=== PATIENT | female | born 1940 | race Caucasian/White ===

== ENCOUNTER 2017-09-01 11:23 | Emergency (ER) | payer OTHER ==
[~2017-09-01] VITALS: Wt 48.1 kg
[2017-09-01] MEDS ORDERED: ONDANSETRON 4 MG INJ IV STA (13:29)
[2017-09-01] MEDS ORDERED: morphine 2 MG INJ IV STA (13:29)
[2017-09-01] MEDS ORDERED: KETOROLAC 30 MG INJ IV STA (13:29)
[2017-09-01] MEDS ORDERED: AMPICILLIN/SULB 1.5GM/NS (PMX) 50 ML IVPB ONE (13:30)
--- NOTE | 2017-09-01 13:55 | ERD ---
ER Documentation Chief Complaint Chief Complaint RIGHT HAND SWELLING X 4 DAYS HPI This is a 77-year-old female with a known history of diabetes that presents to the emergency department complaining of swelling and pain to her right hand that has progressively worsened over the past 4 days. The patient denies any recent or remote trauma to the right hand. She did notice a small pustule that began on the palmar aspect of the right hand 4 days ago but denies any pruritus. She has had no fevers no shaking or chills. She denies any shortness of breath at rest or exertion. She is right-handed dominant. She denies any numbness or tingling of her right hand. She did not take any antipyretics or analgesic medication prior to arrival. ROS All systems reviewed and are negative except as per history of present illness. Medications Home Meds Active Scripts Sulfamethoxazole/Trimethoprim* (Bactrim Ds* Tablet) 1 Each Tablet, 1 TAB PO BID , #10 TAB Prov:DURGA WESTFALL 09/01/17 Cephalexin* (Keflex*) 500 Mg Capsule, 500 MG PO QID for 10 Days, CAP Prov:DURGA WESTFALL 09/01/17 Allergies Allergies: Coded Allergies: No Known Allergy (Unverified , 09/01/17) Physical Exam Vitals Vital Signs Date Time Temp Pulse Resp B/P Pulse Ox O2 Delivery O2 Flow Rate FiO2 09/01/17 15:31 98.3 81 18 154/72 99 Room Air 09/01/17 11:27 98.4 88 18 158/62 99 Physical Exam Constitutional:Well-developed. Well-nourished. HEENT:Normocephalic. Atraumatic.Pupils were equal round reactive to light. Moist mucous membranes.No tonsillar exudates. Neck: No nuchal rigidity. No lymphadenopathy. No posterior cervical spine tenderness or step-offs. Respiratory: Not using accessory muscles of respiration.Lungs were clear to auscultation bilaterally. No rhonchi. No rales. No wheezing. Cardiovascular: Regular rate regular rhythm.No murmurs. No rubs were appreciated.S1, S2 normal. Distal pulses are palpable 2+ bilaterally. GI: Abdomen was soft. Nontender. Non Distended. No pulsatile abdominal masses or bruits. No rebound. No guarding. Bowel sounds were present and normal. Muscle skeletal: Full range of motion of both the upper and lower extremities bilaterally.Normal muscle tone.No assymetrical calf tenderness or swelling. Skin: No petechia, no purpura. No maculopapular rash. Erythremia warmth and tenderness over the palmar surface extending over the second metacarpal. Pustule present over the distal palmar second right metacarpal with no fusiform swelling of the digits. Fingers of the right hand were not held in slight flexion and no tenderness with passive extension of the digits of the right hand. No tenderness over the flexor tendon sheath on the right. No fluctuance or induration over the right hand. NEURO: Patient was alert, awake, orientated x3.No facial droop. Gait observed and normal with no ataxia.Speech had regular rate and rhythm. No focal neurological deficits. Result Diagram: 09/01/17 1350 09/01/17 1350 Results 24 hrs Laboratory Tests Test 09/01/17 13:50 White Blood Count 8.110^3/ul Red Blood Count 4.5710^6/ul Hemoglobin 13.8g/dl Hematocrit 39.4% Mean Corpuscular Volume 86.2fl Mean Corpuscular Hemoglobin 30.2pg Mean Corpuscular Hemoglobin Concent 35.0g/dl Red Cell Distribution Width 12.1% Platelet Count 08185^3/UL Mean Platelet Volume 10.5fl Neutrophils % 69.5% Lymphocytes % 23.4% Monocytes % 5.7% Eosinophils % 1.0% Basophils % 0.2% Nucleated Red Blood Cells % 0.0/100WBC Neutrophils # 5.710^3/ul Lymphocytes # 1.910^3/ul Monocytes # 0.510^3/ul Eosinophils # 0.110^3/ul Basophils # 0.010^3/ul Nucleated Red Blood Cells # 0.010^3/ul Prothrombin Time 11.7Sec Prothrombin Time Ratio 0.9 INR International Normalized Ratio 0.85 Activated Partial Thromboplast Time 33.1Sec Sodium Level 135mmol/L Potassium Level 4.4mmol/L Chloride Level 95mmol/L Carbon Dioxide Level 29mmol/L Anion Gap 15 Blood Urea Nitrogen 15mg/dl Creatinine 0.65mg/dl Glucose Level 315mg/dl Lactic Acid Level 1.6mmol/L Calcium Level 10.2mg/dl Total Bilirubin 0.7mg/dl Direct Bilirubin 0.00mg/dl Indirect Bilirubin 0.7mg/dl Aspartate Amino Transf (AST/SGOT) 24IU/L Alanine Aminotransferase (ALT/SGPT) 42IU/L Alkaline Phosphatase 91IU/L Total Protein 8.8g/dl Albumin 4.8g/dl Globulin 4.00g/dl Albumin/Globulin Ratio 1.20 Current Medications Medications (Trade) Dose Ordered Sig/Bhanu Route PRN Reason Start Time Stop Time Status Last Admin Dose Admin Morphine Sulfate (morphine) 2 mg ONCE STAT IV 09/01/17 13:29 09/01/17 13:33 DC 09/01/17 14:05 Ondansetron HCl (Zofran Inj) 4 mg ONCE STAT IV 09/01/17 13:29 09/01/17 13:33 DC 09/01/17 14:05 Ketorolac Tromethamine 30 mg 30 mg ONCE STAT IV 09/01/17 13:29 09/01/17 13:33 DC 09/01/17 14:05 Ampicillin Sodium/ Sulbactam Sodium (Unasyn 1.5gm/NS (Pmx)) 50 ml @ 100 mls/hr ONCE ONCE IVPB 09/01/17 13:30 09/01/17 13:59 DC 09/01/17 14:11 Procedures/MDM The patient presented to the emergency department with a spreading erythematous superficial infection of the skin and subcutaneous tissues. My differential diagnosis included but was not limited to necrotizing fasciitis, lymphangitis, thrombophlebitis, deep vein thrombosis, allergic reaction, neoplasm, gout or abscess. Predisposing factors of the progressive spread of erythema, warmth, pain and tenderness was considered such as lymphedema, tinea pedis, open wounds, prior trauma or surgery, pre-existing skin lesion (furuncle), retained foreign body, injection drug use or vascular or immune compromise. The patient was hyperglycemic without ketosis. The patient received insulin and IV fluids with resolution of the blood glucose The patient was placed on antibiotics to cover Staphylococcus aureus, including resistant strains such as community-acquired methicillin-resistant S. aureus. Given that the patient has a history of diabetes she was given IV antibiotics which included Unasyn in the emergency department. Blood cultures and lactic acid were obtained prior to this. She was given analgesic medication which included intravenous morphine and Zofran. At this time the patient had no physical exam findings to suggest tenosynovitis and therefore did feel can be safely discharged home with continuation of oral antibiotics. Departure Diagnosis: Primary Impression: Cellulitis of hand, right Additional Impression: Hyperglycemia without ketosis Condition: DURGA Prado Sep 01, 2017 13:55
[2017-09-01 14:08] LABS: BASOPHILS % 0.2 % (0.0-2.0); EOSINOPHILS # 0.1 10^3/ul (0.0-0.5); HEMATOCRIT 39.4 % (37.0-47.0); HEMOGLOBIN 13.8 g/dl (12.0-16.0); LYMPHOCYTES # 1.9 10^3/ul (0.8-2.9); LYMPHOCYTES % 23.4 % (15.0-51.0); MEAN CORPUSCULAR HEMOGLOBIN 30.2 pg (29.0-33.0); MEAN CORPUSCULAR VOLUME 86.2 fl (82.0-101.0); MEAN PLATELET VOLUME 10.5 fl (7.4-10.4); MONOCYTE # 0.5 10^3/ul (0.3-0.9); MONOCYTES % 5.7 % (0.0-11.0); NEUTROPHIL # 5.7 10^3/ul (1.6-7.5); NEUTROPHILS % 69.5 % (39.0-77.0); PLATELET COUNT 249 10^3/UL (140-415); RED BLOOD COUNT 4.57 10^6/ul (4.20-5.40); RED CELL DISTRIBUTION WIDTH 12.1 % (11.5-14.5); WHITE BLOOD COUNT 8.1 10^3/ul (4.8-10.8)
--- NOTE | 2017-09-01 14:21 | RADRPT ---
PROCEDURE: XR Hand. CLINICAL INDICATION: Right hand pain and swelling. TECHNIQUE: Three views of the right hand were obtained. COMPARISON: No prior studies are available for comparison. FINDINGS: The bones of the hand appear intact, with no evidence of fracture, dislocation, or subluxation. The joint spaces are preserved. Bone mineralization is normal. No significant soft tissue swelling is se en. IMPRESSION: 1. Unremarkable right hand x-ray series. 2. No acute fracture or dislocation is seen. RPTAT: PP .Sg Connelly MD, MD Date Time Electronically viewed and signed by .Sg Connelly MD, on 09/01/2017 14:20 .B/
[2017-09-01 14:25] LABS: INR 0.85; PROTIME 11.7 Sec (11.9-14.9); PT RATIO 0.9
[2017-09-01 14:26] LABS: PARTIAL THROMBOPLASTIN TIME 33.1 Sec (25.0-35.0)
[2017-09-01 14:30] LABS: ALBUMIN 4.8 g/dl (3.3-4.9); ALBUMIN/GLOBULIN RATIO 1.2; BILIRUBIN,INDIRECT 0.7 mg/dl (0-1.1); BILIRUBIN,TOTAL 0.7 mg/dl (0.2-1.3); CALCIUM 10.2 mg/dl (8.4-10.2); CREATININE 0.65 mg/dl (0.44-1.00); POTASSIUM 4.4 mmol/L (3.5-5.1); TOTAL PROTEIN 8.8 g/dl (6.1-8.1)
[2017-09-01] MEDS ORDERED: CEPH-443 PO (17:25)
[2017-09-01] MEDS ORDERED: SULF1TAB31 PO (17:25)
[2017-09-01 17:45] VITALS: BP 156/70; PULSE 78; RESP 18; TEMP 98.4
[2017-09-03] MEDS ORDERED: SIMV20TA PO (03:22)
[2017-09-03] MEDS ORDERED: METF1000 PO (03:22)
== END 2017-09-01 17:45 | disposition home or self-care (01) ==
LOC: FTE 11:23
DX: L03.113 Cellulitis of right upper limb (principal); E11.65 Type 2 diabetes mellitus with hyperglycemia; R07.9 Chest pain, unspecified
CPT/HCPCS: 36415; 73130; 80053; 83605; 85025; 85610; 85730; 87040; 96374; 96375; J0295; J1885; J2270; J2405; Z7502

== ENCOUNTER 2017-09-05 10:27 | Inpatient (IN) | END 2017-09-07 17:14 | disposition home or self-care (01) | DRG 603 ==